=== PATIENT | female | born 1980 | race Caucasian/White ===

== ENCOUNTER 2025-04-15 19:59 | Emergency (ER) | payer MEDICAID, SELFPAY ==
[2025-04-15 20:01] VITALS: BMI 26.4
[2025-04-15 20:41] VITALS: BP 115/75; PULSE 66; RESP 16; TEMP 36.6; O2SAT 99
--- NOTE | 2025-04-15 22:03 | XR_ITS ---
Examination: PA chest single view TECHNIQUE: Upright PA chest single view Date and time: April 15, 2025, 2220 hours INDICATIONS: Chest pain today. FINDINGS: Normal heart size. Lungs are clear. The osseous structures are intact IMPRESSION: No active disease
[2025-04-15 22:47] LABS: Basophils # (Auto) 0.0 Thou/mm3 (0.0-0.2); Basophils % (Auto) 1 % (0-2.5); Eosinophils # (Auto) 0.3 Thou/mm3 (0.0-0.5); Eosinophils % (Auto) 5 % (0-10); Hematocrit 40.0 % (36.0-46.0); Hemoglobin 13.5 g/dL (12.0-16.0); Immature Granulocytes Auto 0.02 Thou/mm3 (0.00-0.00); Lymphocytes # (Auto) 1.7 Thou/mm3 (1.0-4.8); Lymphocytes % (Auto) 30 % (10-50); Mean Corpuscular HGB Conc 33.8 g/dl (31.0-37.0); Mean Corpuscular Hemoglobin 30.0 pg (25.0-35.0); Mean Corpuscular Volume 89 fL (80-100); Monocytes # (Auto) 0.6 Thou/mm3 (0.0-0.8); Monocytes % (Auto) 11 % (0-12); Neutrophils # (Auto) 3.0 Thou/mm3 (1.8-7.7); Neutrophils % (Auto) 53 % (37-80); Nucleated Red Blood Cell # 0.00 Thou/mm3 (0.00-0.00); Nucleated Red Blood Cell % 0 /100 WBC (0); Platelet Count 260 Thou/mm3 (140-440); RDW Standard Deviation 44.7 fL (36.4-46.3); Red Blood Count 4.50 Miln/mm3 (4.00-5.20); White Blood Count 5.6 Thou/mm3 (3.6-11.0)
[2025-04-15 23:05] LABS: B-Type Natriuretic Peptide 28 pg/mL (0-100)
[2025-04-15 23:18] LABS: Alanine Aminotransferase 10 U/L (10-49); Albumin, Serum 4.0 gm/dL (3.5-5.0); Albumin/Globulin Ratio 1.6 (1.2-2.2); Alkaline Phosphatase 62 U/L (46-116); Anion Gap 5 (7-16); Aspartate Amino Transferase 15 U/L (0-34); BUN/Creatinine Ratio 6 Ratio (12-20); Bilirubin,Total 0.4 mg/dL (0.3-1.2); Blood Urea Nitrogen < 5 mg/dL (9-23); Calcium 8.9 mg/dL (8.3-10.6); Calcium (Corrected) 8.9 mg/dL (8.5-10.1); Carbon Dioxide 27.0 mMol/L (20.0-31.0); Chloride 109 mMol/L (98-107); Creatinine (Component) 0.9 mg/dL (0.6-1.3); Estimated Creatinine Clearance 68.8 mL/min (>60); Globulin 2.5 gm/dL (2.3-3.5); Glucose 89 mg/dL (74-106); Osmolality,Calculated 277 (275-295); Potassium 4.0 mMol/L (3.4-5.1); Sodium 141 mMol/L (136-145); Total Protein 6.5 gm/dL (5.7-8.2); Troponin I 0.021 ng/mL (0.0-0.045); eGFR > 60 See Note
--- NOTE | 2025-04-15 23:45 | PD.EDCHEST ---
ED Chest Pain RME/HPI General Chief Complaint: Chest Pain Stated Complaint: CHEST PAIN Time Seen by Provider: 04/15/25 20:05 Source: patient Arrival date/time: 04/15/25 19:59 This is a case of 44-year-old female with history of SLE came in in the emergency room due to chest pain mostly on the midsternal area no other associated symptoms history of present illness started today no shortness of breath no palpitation Limitations: no limitations Related Data Home Medications ?Medication ?Instructions ?Recorded ?Confirmed cyclobenzaprine 5 mg tablet 5 mg PO HS 03/30/19 03/30/19 loratadine 10 mg tablet 10 mg PO QDAY 03/30/19 03/30/19 methimazole 5 mg tablet 5 mg PO BID 03/30/19 03/30/19 propranolol 10 mg tablet 10 mg PO BID 03/30/19 03/30/19 Previous Rx's ?Medication ?Instructions ?Recorded acetaminophen 650 mg 650 mg PO Q8H PRN fever or pain 05/20/19 tablet,extended release #30 tabs ibuprofen 600 mg tablet 600 mg PO Q8H PRN fever or pain 05/20/19 #30 tabs hydrocodone 5 mg-acetaminophen 325 1 tab PO Q4H PRN pain #10 tabs 01/07/ mg tablet ([place]) methylprednisolone 4 mg tablets in 4 mg PO .as directed #21 tabs 07/23/20 a dose pack (Medrol (Anand)) ibuprofen 800 mg tablet 800 mg PO Q8H PRN pain #20 tabs 04/15/25 Allergies Allergy/AdvReac Type Severity Reaction Status Date / Time amoxicillin Allergy Severe RASH, Verified 04/15/25 20:06 ITCHING tomato Allergy Severe THROAT Verified 04/15/25 20:06 CLOSES clindamycin Allergy Intermediate RASH Verified 04/15/25 20:06 morphine AdvReac Intermediate ITCHING Verified 04/15/25 20:06 AND AGGITATED Bee Stings Allergy Severe SWELLING, Uncoded 04/15/25 20:06 THROAT CLOSES Review of Systems Review of Systems Systems Reviewed: All systems reviewed, normal except as documented Constitutional Constitutional: Reports system reviewed and no additional complaints, except as documented and Reports as per HPI Cardiovascular Cardiovascular: Reports system reviewed and no additional complaints, except as documented, Reports as per HPI, Denies acrocyanosis, Reports chest pain, Denies chest pain at rest, Denies chest pain with activity, Denies claudication, Denies diaphoresis, Denies dyspnea, Denies dyspnea on exertion, Denies edema, Denies irregular heart rhythm, Denies leg edema, Denies leg ulcers, Denies lightheadedness, Denies orthopnea, Denies palpitations, Denies paroxysmal nocturnal dyspnea, Denies radiating jaw, neck or arm pain, Denies rapid heart rate, Denies slow heart rate and Denies syncope Respiratory Respiratory: Reports system reviewed and no additional complaints, except as documented, Reports as per HPI, Denies dyspnea and Denies dyspnea on exertion Gastrointestinal Gastrointestinal: Reports system reviewed and no additional complaints, except as documented and Reports as per HPI Musculoskeletal Musculoskeletal: Reports system reviewed and no additional complaints, except as documented Neurologic Neurologic: Reports system reviewed and no additional complaints, except as documented, Reports as per HPI and Denies syncope Endocrine Endocrine: Denies palpitations Past Medical History Past Medical History NEUROLOGIC: Negative Neurological Disorders, Cerebrovascular Accident, Transient Ischemic Attacks (TIA), Dementia, Alzheimer's Disease, Parkinson's Disease, Brain Tumor, Meningitis, Seizures, Epilepsy, Multiple Sclerosis, Cerebral Palsy, Amyotrophic Lateral Sclerosis (ALS/Gillian Gehrig's), Guillain-[place] Syndrome, Spina Bifida, Paralysis, Myers's Palsy, Subdural Hematoma, Migraine, Head Trauma or Traumatic Brain Injury CARDIAC: Positive Cardiac Disorders; Negative Myocardial Infarction, Cardiac Arrhythmia, Atrial Fibrillation, Angina, Heart Murmur, Coronary Artery Disease, Atherosclerotic Heart Disease, Peripheral Vascular Disease, Hypercholesterolemia, Aneurysm, Congestive Heart Failure, Congenital Heart Disease, Valvular Heart Disease, Rheumatic Fever, Cardiomyopathy, Edema, Pericarditis, Cellulitis, Deep Vein Thrombosis, Hypertension, Hypotension or Varicose Veins RESPIRATORY: Positive Asthma; Negative Chronic Obstructive Pulmonary Disease (COPD), Bronchitis, Emphysema, Pneumonia, Pulmonary Fibrosis, Cystic Fibrosis, Tuberculosis, Pulmonary Embolism, Pulmonary Edema or Sleep Apnea GASTROINTESTINAL: Negative Gastrointestinal Disorders GENITOURINARY: Negative Genitourinary Disorders or Renal Disease REPRODUCTIVE: Negative Pelvic Inflammatory Disease MUSCULOSKELETAL: Negative Musculoskeletal Disorders ENT: Negative Head Trauma ENDOCRINE: Positive Endocrine Disorders, Hyperthyroidism and Systemic Lupus Erythematosus; Negative Diabetes Mellitus Type 1 or Diabetes Mellitus Type 2 HEMATOLOGIC: Negative Blood Disorders OTHER HISTORY: Positive Chicken Pox; Negative Autoimmune Disease, Blood Transfusions, Blood Transfusion Reaction, Anesthesia Reactions, Organ Transplant, MRSA or Cancer Family History FAMILY HISTORY: Positive Family Respiratory Disorders, Family Cardiac Disorders, Family Cancer and Family Surgery; Negative Family Psychiatric Problems, Family Gastrointestinal Problems or Family Anesthesia Reaction Surgical History SURGICAL: Positive Tubal Ligation; Negative Pacemaker, Endocrine Surgery, Ear Surgery, Abdominal Surgery, Nephrectomy, Joint Replacement, Neurologic Surgery, Vasectomy or Organ Transplant Social History SMOKING STATUS: Never smoker ED Exam General Limitations: Present no limitations General appearance: Present alert and in no apparent distress Head Head exam: Present atraumatic Eye Eye exam: Present normal appearance, PERRL and EOMI ENT ENT exam: Present normal exam, normal oropharynx and mucous membranes moist Neck Neck exam: Present normal inspection, full ROM and trachea midline; Absent tenderness, meningismus, lymphadenopathy or thyromegaly Chest Chest inspection: Present normal inspection and symmetric chest wall rise; Absent tenderness, rash or abscess Respiratory Respiratory exam: Present normal lung sounds bilaterally; Absent respiratory distress, wheezes, stridor, accessory muscle use or prolonged expiratory phase Cardiovascular Cardiovascular exam: Present regular rate, normal rhythm and normal heart sounds; Absent bradycardia, tachycardia, irregular rhythm, systolic murmur or diastolic murmur Abdominal Exam Abdominal exam: Present soft and normal bowel sounds; Absent distention, tenderness, guarding, rebound, rigidity, diminished bowel sounds, hyperactive bowel sounds or hypoactive bowel sounds Extremities Exam Extremities exam: Present normal inspection and full ROM Back Exam Back exam: Present normal inspection and full ROM Neurological Exam Neurological exam: Present alert, oriented X3, CN II-XII intact, normal gait and reflexes normal; Absent motor sensory deficit Psychiatric Psychiatric exam: Present normal affect and normal mood Skin Skin exam: Present warm, dry, intact and normal color Course Quality Measures none Orders Category Date Time Status EKG (ED ONLY) *Do not use* NOW Care 04/15/25 20:08 Completed EKG (ED Only) Stat Exams 04/15/25 20:08 Ordered XR chest 1V portable Stat Exams 04/15/25 22:03 Completed BNP [B-Type Natriuretic Peptide] Stat Lab 04/15/25 22:34 Completed CBC Stat Lab 04/15/25 22:34 Completed Comprehensive Metabolic Panel Stat Lab 04/15/25 22:34 Completed Troponin I Stat Lab 04/15/25 22:34 Completed Urinalysis Stat Lab 04/15/25 22:03 Ordered Vital Signs Vital signs: Vital Signs Temperature 98 F 04/15/25 20:41 Pulse Rate 66 04/15/25 20:41 Respiratory Rate 16 04/15/25 20:41 Blood Pressure 115/75 04/15/25 20:41 Pulse Oximetry (%) 99 04/15/25 20:41 Oxygen Delivery Method Room Air 04/15/25 20:41 Oxygen saturation 99% in room air Chest Pain MDM Narrative MDM Narrative:: This is a case of 44-year-old female with history of SLE came in in the emergency room due to chest pain mostly on the midsternal area no other associated symptoms history of present illness started today no shortness of breath no palpitation physical examination patient is awake alert oriented not in distress nontoxic looking vital signs stable afebrile nontachycardic nontachypneic not hypoxic patient noted to have mild tenderness on the midsternal area possible due to costochondritis heart sounds normal rate regular rhythm no murmur lung sounds clear no crackles no rales or retraction no stridor no edema the rest of the physical examination neurological exam is normal and unremarkable blood test showed no leukocytosis no anemia kidney liver function is normal no electrolyte imbalance troponin is negative BNP is negative EKG sinus rhythm normal heart rate and chest x-ray normal at this point there is no signs and symptoms of cardiopulmonary pathology no pulmonary embolism no AL patient will follow-up with PCP in 2 days for reevaluation and to be referred to supervisor paint 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 Patient verbalized no further complains explained diagnosis and answered patient question. Patient is comfortable with the proposed management plan including the need to follow up with his/her primary care physician and any specialist if applicable Discussed patient for any urgent condition or worsening sx, He/She needed to go to emergency room immediately or call 911. Patient acknowledge the responsibility to follow up as instructed and to monitor her/his symptoms. For any persistence of the symptoms for more than 3-5 days return precaution advised. Discussed the result of the test and was given printed discharge instruction Patient data External records reviewed:: [facility] previous records Clinical information provided by:: patient Social determinants that could affect healthcare access:: none Patient has the following chronic illnesses:: None How is presenting disease/condition affected by chronic disease/condition?: no chronic disease Evaluation data The following diagnostics were reviewed and interpreted by me:: lab results and radiology exam(s) Lab and/or radiology exams considered but not ordered:: Reviewed Interpretation Summary: Reviewed Medications / Prescriptions Medications or Prescriptions considered but not ordered:: Given Medication administrations:: Given Consultations Consultation(s) initiated? (list below): No Diagnosis Chest Pain Differential Diagnosis: atypical chest pain and costochondritis Most likely diagnosis given after review of the tests above:: Chest pain of unknown etiology Admission Indicated Admission indicated?: not indicated Explain why admission is indicated or not indicated:: Not indicated Admission Request Was there a request for admission?: No Admission Attestation Admission request attestation: Not indicated Disposition Plan Disposition Plan: Discharge Discharge Attestation Discharge Attestation: The patient and all family members were given an opportunity to ask questions and understood the discharge instructions. Discharge instructions specifically effects, indications for sooner follow up or return to the emergency department, and the expected course of current diagnosis. Patient condition: Stable Discharge Plan Plan Patient Disposition: HOME (Self Care) Patient condition on transfer: Stable Prescriptions/Referrals Prescriptions/Med Rec: New ibuprofen 800 mg tablet 800 mg PO Q8H PRN (Reason: pain) Qty: 20 0RF No Action acetaminophen 650 mg tablet extended release 650 mg PO Q8H PRN (Reason: fever or pain) Qty: 30 0RF Rx Instructions: swallow whole; do not crush, chew, break, dissolve, cut, or open ibuprofen 600 mg tablet 600 mg PO Q8H PRN (Reason: fever or pain) Qty: 30 0RF Rx Instructions: prn pain / fever propranolol 10 mg Tablet 10 mg PO BID methimazole 5 mg Tablet 5 mg PO BID loratadine 10 mg Tablet 10 mg PO QDAY cyclobenzaprine 5 mg Tablet 5 mg PO HS hydrocodone-acetaminophen [[place]] 5-325 mg tablet 1 tab PO Q4H MDD 4 PRN (Reason: pain) Qty: 10 0RF methylprednisolone [Medrol (Anand)] 4 mg tablets,dose pack 4 mg PO .as directed Qty: 21 0RF Referrals: Nupur Kang NP [Primary Care Provider] - In 1 week Problem List Clinical Impression: Chest pain of unknown etiology Patient/Caregiver Discharge Instructions Education Materials: ED Chest Pain, Uncertain Cause Additional Instructions: Follow-up with your primary care physician in 2 days for reevaluation and to be referred to supervisor paint 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
== END 2025-04-16 00:13 | disposition home or self-care (01) ==
PROVIDERS: Nurse Practitioner Family; Emergency Provider Emergency Medicine; PCP Nurse Practitioner Family
DX: R07.9 Chest pain, unspecified (principal); M32.9 Systemic lupus erythematosus, unspecified
CPT/HCPCS: 36415; 71045; 80053; 81001; 83880; 84484; 85025; 93005; 99283

== ENCOUNTER 2025-05-19 20:47 | Emergency (ER) | payer MEDICAID, SELFPAY ==
[2025-05-19 20:48] VITALS: BMI 24.5
[2025-05-19 21:05] VITALS: BP 108/67; PULSE 68; RESP 18; TEMP 37.1; O2SAT 96
--- NOTE | 2025-05-19 21:36 | PD.EDSKIN ---
ED Skin Abcess FB-RME/HPI General Chief complaint: Skin/Abscess/Foreign Body Stated complaint: RASH TO WHOLE BODY Time Seen by Provider: 05/19/25 21:14 Arrival date/time: 05/19/25 20:47 RME / HPI RME / HPI narrative: 44-year-old female presents to the ED with a complaint of tiny blisters to her bilateral hands that are extremely itchy. They have been present for the past 3 days. 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 Related Data Home Medications ?Medication ?Instructions ?Recorded ?Confirmed cyclobenzaprine 5 mg tablet 5 mg PO HS 03/30/19 03/30/19 loratadine 10 mg tablet 10 mg PO QDAY 03/30/19 03/30/19 methimazole 5 mg tablet 5 mg PO BID 03/30/19 03/30/19 propranolol 10 mg tablet 10 mg PO BID 03/30/19 03/30/19 Previous Rx's ?Medication ?Instructions ?Recorded acetaminophen 650 mg 650 mg PO Q8H PRN fever or pain 05/20/19 tablet,extended release #30 tabs ibuprofen 600 mg tablet 600 mg PO Q8H PRN fever or pain 05/20/19 #30 tabs hydrocodone 5 mg-acetaminophen 325 1 tab PO Q4H PRN pain #10 tabs 01/07/20 mg tablet ([place]) methylprednisolone 4 mg tablets in 4 mg PO .as directed #21 tabs 07/23/20 a dose pack (Medrol (Anand)) ibuprofen 800 mg tablet 800 mg PO Q8H PRN pain #20 tabs 04/15/25 prednisone 20 mg tablet 50 mg (2.5 x 20 mg) PO QDAY 4 days 05/19/25 #10 tabs sulfamethoxazole 800 1 tab PO BID #14 tabs 05/19/25 mg-trimethoprim 160 mg tablet (Bactrim DS) triamcinolone acetonide 0.1 % 1 applic topical BID PRN 05/19/25 topical cream Itching/rash #30 grams Allergies Allergy/AdvReac Type Severity Reaction Status Date / Time amoxicillin Allergy Severe RASH, Verified 05/19/25 20:47 ITCHING tomato Allergy Severe THROAT Verified 05/19/25 20:47 CLOSES clindamycin Allergy Intermediate RASH Verified 05/19/25 20:47 morphine AdvReac Intermediate ITCHING Verified 05/19/25 20:47 AND AGGITATED Bee Stings Allergy Severe SWELLING, Uncoded 05/19/25 20:47 THROAT CLOSES Review of Systems Review of Systems Systems Reviewed: All systems reviewed, normal except as documented Past Medical History Past Medical History NEUROLOGIC: Negative Neurological Disorders, Cerebrovascular Accident, Transient Ischemic Attacks (TIA), Dementia, Alzheimer's Disease, Parkinson's Disease, Brain Tumor, Meningitis, Seizures, Epilepsy, Multiple Sclerosis, Cerebral Palsy, Amyotrophic Lateral Sclerosis (ALS/Gillian Gehrig's), Guillain-[place] Syndrome, Spina Bifida, Paralysis, Myers's Palsy, Subdural Hematoma, Migraine, Head Trauma or Traumatic Brain Injury CARDIAC: Positive Cardiac Disorders; Negative Myocardial Infarction, Cardiac Arrhythmia, Atrial Fibrillation, Angina, Heart Murmur, Coronary Artery Disease, Atherosclerotic Heart Disease, Peripheral Vascular Disease, Hypercholesterolemia, Aneurysm, Congestive Heart Failure, Congenital Heart Disease, Valvular Heart Disease, Rheumatic Fever, Cardiomyopathy, Edema, Pericarditis, Cellulitis, Deep Vein Thrombosis, Hypertension, Hypotension or Varicose Veins RESPIRATORY: Positive Asthma; Negative Chronic Obstructive Pulmonary Disease (COPD), Bronchitis, Emphysema, Pneumonia, Pulmonary Fibrosis, Cystic Fibrosis, Tuberculosis, Pulmonary Embolism, Pulmonary Edema or Sleep Apnea GASTROINTESTINAL: Negative Gastrointestinal Disorders GENITOURINARY: Negative Genitourinary Disorders or Renal Disease REPRODUCTIVE: Negative Pelvic Inflammatory Disease MUSCULOSKELETAL: Negative Musculoskeletal Disorders ENT: Negative Head Trauma ENDOCRINE: Positive Endocrine Disorders, Hyperthyroidism and Systemic Lupus Erythematosus; Negative Diabetes Mellitus Type 1 or Diabetes Mellitus Type 2 HEMATOLOGIC: Negative Blood Disorders OTHER HISTORY: Positive Chicken Pox; Negative Autoimmune Disease, Blood Transfusions, Blood Transfusion Reaction, Anesthesia Reactions, Organ Transplant, MRSA or Cancer Family History FAMILY HISTORY: Positive Family Respiratory Disorders, Family Cardiac Disorders, Family Cancer and Family Surgery; Negative Family Psychiatric Problems, Family Gastrointestinal Problems or Family Anesthesia Reaction Surgical History SURGICAL: Positive Tubal Ligation; Negative Pacemaker, Endocrine Surgery, Ear Surgery, Abdominal Surgery, Nephrectomy, Joint Replacement, Neurologic Surgery, Vasectomy or Organ Transplant Social History SMOKING STATUS: Current some day smoker ED Exam Narrative Physical exam: A&O, afebrile and non-toxic appearing, pleasant 44-year-old female, no acute distress. Lung sounds are clear, RRR. Skin exam of the hands reveals tiny vesicles, the majority popped to the dorsal aspect of her PIP joints. 1 lesion to her right hand, fifth finger PIP joint appears to be pustular. Moves all extremities well. Course Course Course Narrative: Patient was given Decadron 10 mg p.o. as well as Bactrim DS 1 tablet p.o. Quality Measures none Orders Category Date Time Status Dexamethasone Inj [Decadron Inj] Med 05/19/25 21:35 Once 10 mg PO X1 ONE Trimethoprim/Sulfa 160/800 Ds [Bactrim Ds] Med 05/19/25 21:35 Once 1 tab PO X1 ONE Vital Signs Vital signs: Vital Signs Temperature 98.7 F 05/19/25 21:05 Pulse Rate 68 05/19/25 21:05 Respiratory Rate 18 05/19/25 21:05 Blood Pressure 108/67 05/19/25 21:05 Pulse Oximetry (%) 96 05/19/25 21:05 Oxygen Delivery Method Room Air 05/19/25 21:05 Skin / Abscess / Foreign Body MDM Narrative MDM Narrative:: Symptoms, exam and diagnostic studies are consistent with: Likely dyshidrotic eczema with 1 pustular lesion. Patient was discharged home in stable condition. Patient/family advised to follow-up with their PCP in 24-48 hours. Encouraged to return to the ED for any new or worsening symptoms. Patient data External records reviewed:: None Clinical information provided by:: patient Social determinants that could affect healthcare access:: none Patient has the following chronic illnesses:: N/A How is presenting disease/condition affected by chronic disease/condition?: no chronic disease Evaluation data The following diagnostics were reviewed and interpreted by me:: other (specify) (None) Lab and/or radiology exams considered but not ordered:: N/A Interpretation Summary: N/A Medications / Prescriptions Medications or Prescriptions considered but not ordered:: N/A Medication administrations:: Medication Administration History Dexamethasone Sodium Phosphate (Dexamethasone Sod Phos Inj 10 Mg/Ml Vial) 10 mg PO X1 ONE Stop: 05/19/25 21:36 As noted above, and Bactrim DS 1 tab p.o. Consultations Consultation(s) initiated? (list below): No Diagnosis Skin/Abscess Differential Diagnosis: abscess of skin or subcutaneous tissue, eczema, impetigo and contact dermatitis Most likely diagnosis given after review of the tests above:: Likely dyshidrotic eczema with 1 pustular lesion. Admission Indicated Admission indicated?: not indicated Explain why admission is indicated or not indicated:: Patient is stable for discharge Admission Request Was there a request for admission?: No Admission Attestation Admission request attestation: N/A Disposition Plan Disposition Plan: Discharge Discharge Attestation Discharge Attestation: The patient and all family members were given an opportunity to ask questions and understood the discharge instructions. Discharge instructions specifically effects, indications for sooner follow up or return to the emergency department, and the expected course of current diagnosis. Patient condition: Stable Discharge Plan Plan Patient Disposition: HOME (Self Care) Discharge Disposition comment: Stable Prescriptions/Referrals Prescriptions/Med Rec: New prednisone 20 mg tablet 50 mg PO QDAY 4 Days Qty: 10 0RF sulfamethoxazole-trimethoprim [Bactrim DS] 800-160 mg tablet 1 tab PO BID Qty: 14 0RF triamcinolone acetonide 0.1 % cream 1 applic topical BID PRN (Reason: Itching/rash) Qty: 30 0RF No Action acetaminophen 650 mg tablet extended release 650 mg PO Q8H PRN (Reason: fever or pain) Qty: 30 0RF Rx Instructions: swallow whole; do not crush, chew, break, dissolve, cut, or open ibuprofen 600 mg tablet 600 mg PO Q8H PRN (Reason: fever or pain) Qty: 30 0RF Rx Instructions: prn pain / fever propranolol 10 mg Tablet 10 mg PO BID methimazole 5 mg Tablet 5 mg PO BID loratadine 10 mg Tablet 10 mg PO QDAY cyclobenzaprine 5 mg Tablet 5 mg PO HS hydrocodone-acetaminophen [[place]] 5-325 mg tablet 1 tab PO Q4H MDD 4 PRN (Reason: pain) Qty: 10 0RF methylprednisolone [Medrol (Anand)] 4 mg tablets,dose pack 4 mg PO .as directed Qty: 21 0RF ibuprofen 800 mg tablet 800 mg PO Q8H PRN (Reason: pain) Qty: 20 0RF Problem List Clinical Impression: Dyshidrotic eczema, Skin pustule Patient/Caregiver Discharge Instructions Education Materials: ED Atopic Dermatitis (Adult), ED Abscess Treatment (Child) Additional Instructions: Take the antibiotics and steroids as prescribed and complete the course even though you may be feeling better. Use the steroid cream as needed for itching and any new lesions. Follow-up with your primary care physician in 24 to 48 hours. Return to the ED for any new or worsening symptoms. Print Language: Mohawk Stand Alone Forms: Jalyn Award Info., Patient Portal Info Letter PA/NEUROLOGY TECHNICIAN Supervising Physician PA/CRISTOBAL Supervising Physician: Dr. Hare
[2025-05-19] MEDS: DEXAMETHASONE SOD PHOS INJ 10 MG/ML VIAL PO (21:57)
[2025-05-19] MEDS: TRIMETHOPRIM/SULFA 160/800 DS TABLET 1 TAB PO (21:57)
[2025-05-19 22:13] VITALS: RESP 12
== END 2025-05-19 22:14 | disposition home or self-care (01) ==
PROVIDERS: Emergency Provider Physician Assistant
DX: L30.1 Dyshidrosis [pompholyx] (principal); L08.9 Local infection of the skin and subcutaneous tissue, unspecified; Z88.0 Allergy status to penicillin; Z88.1 Allergy status to other antibiotic agents
CPT/HCPCS: 99283; J1100; A9270

== ENCOUNTER 2025-05-30 23:44 | Emergency (ER) | payer MEDICAID, SELFPAY ==
[2025-05-30 23:45] VITALS: BMI 24.5
[2025-05-31 00:46] VITALS: BP 157/88; PULSE 70; RESP 20; TEMP 36.8; O2SAT 97
--- NOTE | 2025-05-31 00:51 | XR_ITS ---
Examination: Abdomen sonogram, Limited Date and time of exam: May 31, 2025 at 0150 hours INDICATIONS: Right upper abdominal pain beginning 2 hours ago Technique: Real-time gomez scale transabdominal sonographic images of the upper abdomen obtained. Findings: Normal gallbladder. Normal common bile duct 0.25 cm. Pancreas obscured by bowel gas. Liver 13.2 cm no liver lesions. Normal hepatopedal portal venous flow. Patent IVC. IMPRESSION: Normal gallbladder. Normal common bile duct
--- NOTE | 2025-05-31 00:51 | XR_ITS ---
Examination: CT abdomen and pelvis without contrast. Coronal 3-D reconstructions. Sagittal 2-D reconstructions. Date and time of exam:May 31, 2025, 0236 hours. INDICATIONS: Outside right-sided flank pain today. CTDI: vol (mGy): 6.37. DLP: (mGycm): 341. Technique: Axial images of the abdomen have been obtained, 3 mm slice thickness Intravenous contrast material has not been administered. Low dose protocols were performed. One or more of the following dose reduction techniques were used; automated exposure control, adjustment of the mA and/or KV according to patient size, use of iterative reconstruction technique. Findings: No focal liver or splenic lesion No gallstones No pancreatic or adrenal mass Mild right hydronephrosis, 2 mm distal right ureteral calculus. Normal appendix No bowel obstruction Contracted urinary bladder IMPRESSION: Mild right hydronephrosis secondary to 2 mm distal right ureteral calculus
--- NOTE | 2025-05-31 00:52 | PD.EDBACK ---
ED Back Injury Pain RME/HPI General Chief Complaint: Back Pain/Injury Stated Complaint: RIGHT FLANK PAIN RADIATING TO ABD Time Seen by Provider: 05/31/25 00:49 Arrival date/time: 05/30/25 23:44 RME / HPI RME / HPI Narrative: See MDM for Dr. Ontiveros's HPI Documentation. Related Data Home Medications ?Medication ?Instructions ?Recorded ?Confirmed cyclobenzaprine 5 mg tablet 5 mg PO HS 03/30/19 03/30/19 loratadine 10 mg tablet 10 mg PO QDAY 03/30/19 03/30/19 methimazole 5 mg tablet 5 mg PO BID 03/30/19 03/30/19 propranolol 10 mg tablet 10 mg PO BID 03/30/19 03/30/19 Previous Rx's ?Medication ?Instructions ?Recorded acetaminophen 650 mg 650 mg PO Q8H PRN fever or pain 05/20/19 tablet,extended release #30 tabs ibuprofen 600 mg tablet 600 mg PO Q8H PRN fever or pain 05/20/19 #30 tabs hydrocodone 5 mg-acetaminophen 325 1 tab PO Q4H PRN pain #10 tabs 01/07/20 mg tablet (Nichols) methylprednisolone 4 mg tablets in 4 mg PO .as directed #21 tabs 07/23/20 a dose pack (Medrol (Anand)) ibuprofen 800 mg tablet 800 mg PO Q8H PRN pain #20 tabs 04/15/25 sulfamethoxazole 800 1 tab PO BID #14 tabs 05/19/25 mg-trimethoprim 160 mg tablet (Bactrim DS) triamcinolone acetonide 0.1 % 1 applic topical BID PRN 05/19/25 topical cream Itching/rash #30 grams acetaminophen 300 mg-codeine 30 mg 2 tab PO Q8H PRN pain #20 tabs 05/31/25 tablet ketorolac 10 mg tablet 10 mg PO Q8H PRN pain 5 days #10 05/31/25 tabs ondansetron 4 mg disintegrating 4 mg PO TID PRN nausea and 05/31/25 tablet vomiting 30 days #10 tabs tamsulosin 0.4 mg capsule (Flomax) 0.4 mg PO QDAY 7 days #7 caps 05/31/25 Allergies Allergy/AdvReac Type Severity Reaction Status Date / Time amoxicillin Allergy Severe RASH, Verified 05/30/25 23:45 ITCHING tomato Allergy Severe THROAT Verified 05/30/25 23:45 CLOSES clindamycin Allergy Intermediate RASH Verified 05/30/25 23:45 morphine AdvReac Intermediate ITCHING Verified 05/30/25 23:45 AND AGGITATED Bee Stings Allergy Severe SWELLING, Uncoded 05/30/25 23:45 THROAT CLOSES Review of Systems Review of Systems Systems Reviewed: All systems reviewed, normal except as documented Past Medical History Past Medical History CARDIAC: Positive Cardiac Disorders RESPIRATORY: Positive Asthma ENDOCRINE: Positive Endocrine Disorders, Hyperthyroidism and Systemic Lupus Erythematosus OTHER HISTORY: Positive Chicken Pox Family History FAMILY HISTORY: Positive Family Respiratory Disorders, Family Cardiac Disorders, Family Cancer and Family Surgery Surgical History SURGICAL: Positive Tubal Ligation ED Exam Narrative Physical exam: See MDM for Dr. Ontiveros's Physical Exam Documentation. Course Quality Measures none Orders Category Date Time Status Miscellaneous Nursing Order NOW Care 05/31/25 04:01 Completed Saline [Insert IV] NOW Care 05/31/25 00:[address] abdomen pelvis wo con Stat Exams 05/31/25 00:51 Completed US gall bladder Stat Exams 05/31/25 00:51 Completed Alcohol, Blood Medical Stat Lab 05/31/25 01:20 Completed Amylase Stat Lab 05/31/25 01:20 Completed Bilirubin,Direct Stat Lab 05/31/25 01:20 Completed CBC Stat Lab 05/31/25 01:20 Completed CMP [Comprehensive Metabolic Panel] Stat Lab 05/31/25 01:20 Completed HCG,Qualitative Serum Stat Lab 05/31/25 01:20 Completed Lipase Stat Lab 05/31/25 01:20 Completed Magnesium Stat Lab 05/31/25 01:20 Completed UA, C/S IF [Urinalysis, C/S if Indicated] Stat Lab 05/31/25 01:20 Completed Urine Culture Stat Lab 05/31/25 02:00 Completed HYDROmorphone INJ [Dilaudid Inj] Med 05/31/25 00:51 Discontinued 1 mg IVP X1 ONE HYDROmorphone INJ [Dilaudid Inj] Med 05/31/25 04:00 Discontinued 1 mg IVP X1 ONE Ketorolac Inj [Toradol Inj] Med 05/31/25 00:51 Discontinued 30 mg IVP X1 ONE Ondansetron Inj [Zofran Inj] Med 05/31/25 00:51 Discontinued 4 mg IVP X1 ONE Sodium Chloride 0.9% 1000 ml [Ns] 1,000 ml Med 05/31/25 00:51 Discontinued IV 999 mls/hr cefTRIAXone/D5w 1gm IV premix [Rocephin/D5w 1gm IV Med 05/31/25 02:16 Discontinued premix] 1 gm in 50 ml IV X1 Vital Signs Vital signs: Vital Signs Temperature 98.2 F 05/31/25 00:46 Pulse Rate 70 05/31/25 00:46 Respiratory Rate 20 05/31/25 00:46 Blood Pressure 157/88 H 05/31/25 00:46 Pulse Oximetry (%) 97 05/31/25 00:46 Oxygen Delivery Method Room Air 05/31/25 00:46 Back Pain / Injury MDM Narrative MDM Narrative:: Scribe Attestation: I, Micki Caal, am scribing for and in the presence of Dr. Ontiveros. This section includes all my notes and documentations, including HPI, PE, and ED course. Dante Ontiveros MD HPI: 44 y/o female with Hx of Systemic Lupus Erythematosus presents with severe right-sided flank pain x 30 minutes. No other complaints. ROS: All negative except as documented in HPI. Physical Exam: General: Alert and oriented. In severe pain. Eyes: Conjunctivae and lids clear. ENT: No nasal congestion. Neck: Supple. Heart: RRR. Lungs: No respiratory distress. Good air movement. No rhonchi, wheezing, rales. Abdomen: Soft and nontender. Normal bowel sounds. No distension. No rebound or guarding. Back: No CVA tenderness. Skin: Warm and dry. Neuro: Alert and oriented X 3. I reviewed all diagnostic test results: My review of the Gall Bladder US report is: NAD. My review of the Abdomen/Pelvis CT report is: 2 mm obstructing calculus in the right terminal ureter. Blood tests and urine tests remarkable for possible UTI. At this point, diagnoses include: Right Kidney Stone. Treatment here included: Dilaudid 1 mg, IVF, Rocephin 1 G, Toradol 30 mg, Zofran 4 mg She felt much better. Recommended outpatient care. Based on my best medical judgment, made decision no further evaluation or treatment indicated at this time. Patient understands and agrees to the discharge instructions customized and printed, see below. Discharge Instructions from Dr. Ontiveros: --Your symptoms are due to a 2 mm right kidney stone.? It is outside the kidney.? It is trying to pass into your bladder.? --Increase oral fluid to flush your kidneys.? Maintain clear urine. if it's dark or yellow then increase oral fluid.? If you don't do this, you won't pass it.? --Take Flomax to help decrease spasms to increase the chance of passing it.? --Take Zofran as needed for nausea or vomiting. --Take Ketorolac/Toradol for pain control.? And Tylenol with Codeine.? If you are in severe pain, you won't pass it.?? --Strain your urine so you can catch the stone when you pass it.? --See a private doctor on 06/03/25 for recheck. Take the stone with you for analysis because certain stones can be prevented.? If you didn't pass it, ask for referral to see urologist.? Who will take the stone out for you. --Seek immediate medical care with fever over 100.4, persistent vomiting despite Zofran, intolerable pain, or with any concerns.?? Dante Ontiveros MD Patient data External records reviewed:: [facility] previous records (Reviewed prior ED records from 05/19/25. Patient was seen for Dyshidrotic eczema.) Clinical information provided by:: patient Social determinants that could affect healthcare access:: none Patient has the following chronic illnesses:: Asthma, Hyperthyroidism and Systemic Lupus Erythematosus How is presenting disease/condition affected by chronic disease/condition?: exacerbated by Evaluation data The following diagnostics were reviewed and interpreted by me:: lab results and radiology exam(s) Lab and/or radiology exams considered but not ordered:: None Interpretation Summary: I reviewed all diagnostic test results: My review of the Gall Bladder US report is: NAD. My review of the Abdomen/Pelvis CT report is: 2 mm obstructing calculus in the right terminal ureter. Blood tests and urine tests remarkable for possible UTI. Medications / Prescriptions Medications or Prescriptions considered but not ordered:: None Medication administrations:: Medication Administration History Discontinued Medications Hydromorphone HCl (Hydromorphone Inj 2 Mg/Ml Vial) 1 mg IVP X1 ONE Stop: 05/31/25 00:52 Last Admin: 05/31/25 01:23 Dose: 1 mg Documented By: NAVNEET Hydromorphone HCl (Hydromorphone Inj 2 Mg/Ml Vial) 1 mg IVP X1 ONE Stop: 05/31/25 04:01 Last Admin: 05/31/25 04:09 Dose: 1 mg Documented By: PEDRO LUIS Sodium Chloride (Ns) 1,000 mls @ 999 mls/hr IV .Q1H1M ONE Stop: 05/31/25 01:51 Last Infusion: 05/31/25 04:16 Dose: Infused Documented By: PEDRO LUIS Admin: 05/31/25 01:20 Dose: 999 mls/hr Documented By: NAVNEET Ceftriaxone Sodium/Dextrose (Rocephin/D5w 1gm Iv Premix) 1 gm in 50 mls @ 100 mls/hr IV X1 ONE Stop: 05/31/25 02:45 Last Infusion: 05/31/25 04:16 Dose: Infused Documented By: PEDRO LUIS Admin: 05/31/25 03:01 Dose: 100 mls/hr Documented By: NAVNEET Ketorolac Tromethamine (Ketorolac Inj 30 Mg/Ml Vial) 30 mg IVP X1 ONE Stop: 05/31/25 00:52 Last Admin: 05/31/25 01:20 Dose: 30 mg Documented By: NAVNEET Ondansetron HCl (Ondansetron Inj 2 Mg/Ml Inj 2 Ml) 4 mg IVP X1 ONE; Protocol Stop: 05/31/25 00:52 Last Admin: 05/31/25 01:21 Dose: 4 mg Documented By: NAVNEET Dilaudid 1 mg, IVF, Rocephin 1 G, Toradol 30 mg, Zofran 4 mg Consultations Consultation(s) initiated? (list below): No Diagnosis Differential diagnosis back pain/injury: lumbar radiculopathy, sciatica, strain of lumbar region, renal colic, pyelonephritis, AAA, discitis and other (Renal Calculi) Most likely diagnosis given after review of the tests above:: Right Kidney Stone Admission Indicated Admission indicated?: not indicated Explain why admission is indicated or not indicated:: With significant improvement and no condition needing emergent intervention, there was no indication for admission. Admission Request Was there a request for admission?: No Disposition Plan Disposition Plan: Discharge Discharge Attestation Discharge Attestation: The patient and all family members were given an opportunity to ask questions and understood the discharge instructions. Discharge instructions specifically effects, indications for sooner follow up or return to the emergency department, and the expected course of current diagnosis. Patient condition: Stable Discharge Plan Plan Patient Disposition: HOME (Self Care) Prescriptions/Referrals Prescriptions/Med Rec: New acetaminophen-codeine 300-30 mg tablet 2 tab PO Q8H MDD 6 PRN (Reason: pain) Qty: 20 0RF ketorolac 10 mg tablet 10 mg PO Q8H PRN (Reason: pain) 5 Days Qty: 10 0RF tamsulosin [Flomax] 0.4 mg capsule 0.4 mg PO QDAY 7 Days Qty: 7 0RF ondansetron 4 mg tablet,disintegrating 4 mg PO TID PRN (Reason: nausea and vomiting) 30 Days Qty: 10 0RF No Action acetaminophen 650 mg tablet extended release 650 mg PO Q8H PRN (Reason: fever or pain) Qty: 30 0RF Rx Instructions: swallow whole; do not crush, chew, break, dissolve, cut, or open ibuprofen 600 mg tablet 600 mg PO Q8H PRN (Reason: fever or pain) Qty: 30 0RF Rx Instructions: prn pain / fever propranolol 10 mg Tablet 10 mg PO BID methimazole 5 mg Tablet 5 mg PO BID loratadine 10 mg Tablet 10 mg PO QDAY cyclobenzaprine 5 mg Tablet 5 mg PO HS hydrocodone-acetaminophen [Nichols] 5-325 mg tablet 1 tab PO Q4H MDD 4 PRN (Reason: pain) Qty: 10 0RF methylprednisolone [Medrol (Anand)] 4 mg tablets,dose pack 4 mg PO .as directed Qty: 21 0RF ibuprofen 800 mg tablet 800 mg PO Q8H PRN (Reason: pain) Qty: 20 0RF sulfamethoxazole-trimethoprim [Bactrim DS] 800-160 mg tablet 1 tab PO BID Qty: 14 0RF triamcinolone acetonide 0.1 % cream 1 applic topical BID PRN (Reason: Itching/rash) Qty: 30 0RF Referrals: Fartun Mcdonough [Primary Care Provider] - In 1 week Problem List Clinical Impression: Right kidney stone Patient/Caregiver Discharge Instructions Discharge Activity: activity as tolerated Education Materials: ED Kidney Stone w/ Colic Additional Instructions: Discharge Instructions from Dr. Ontiveros: --Your symptoms are due to a 2 mm right kidney stone.? It is outside the kidney.? It is trying to pass into your bladder.? --Increase oral fluid to flush your kidneys.? Maintain clear urine. if it's dark or yellow then increase oral fluid.? If you don't do this, you won't pass it.? --Take Flomax to help decrease spasms to increase the chance of passing it.? --Take Zofran as needed for nausea or vomiting. --Take Ketorolac/Toradol for pain control.? And Tylenol with Codeine.? If you are in severe pain, you won't pass it.?? --Strain your urine so you can catch the stone when you pass it.? --See a private doctor on 06/03/25 for recheck. Take the stone with you for analysis because certain stones can be prevented.? If you didn't pass it, ask for referral to see urologist.? Who will take the stone out for you. --Seek immediate medical care with fever over 100.4, persistent vomiting despite Zofran, intolerable pain, or with any concerns.?? Print Language: Hungarian Stand Alone Forms: [facility] Award Info., Patient Portal Info Letter
[2025-05-31] MEDS: SODIUM CHLORIDE 0.9% 1000 ML 1,000 ML 999 ML IV (01:20)
[2025-05-31] MEDS: KETOROLAC INJ 30 MG/ML VIAL IVP (01:20)
[2025-05-31] MEDS: ONDANSETRON INJ 2 MG/ML INJ 2 ML 4 MG IVP (01:21)
[2025-05-31] MEDS: HYDROmorphone INJ 2 MG/ML VIAL 1 MG IVP ×2 (01:23→04:09)
--- NOTE | 2025-05-31 01:37 | PC.NURSE ---
PT ARRIVED TO ED WITH MOM FOR RIGHT FLANK PAIN THAT STARTED AROUND 0000 05/31/2025. PT STATES THAT SHE HAS A HISTORY OF KIDNEY STONES IN THE PAST WELL OF HYPERTHYROIDISM AND LUPUS.
[2025-05-31 01:42] LABS: Collection Type, Urine Clean Catch
[2025-05-31 01:44] LABS: Basophils # (Auto) 0.1 Thou/mm3 (0.0-0.2); Basophils % (Auto) 1 % (0-2.5); Eosinophils # (Auto) 0.2 Thou/mm3 (0.0-0.5); Eosinophils % (Auto) 2 % (0-10); Hematocrit 43.3 % (36.0-46.0); Hemoglobin 14.7 g/dL (12.0-16.0); Immature Granulocytes Auto 0.03 Thou/mm3 (0.00-0.00); Lymphocytes # (Auto) 2.3 Thou/mm3 (1.0-4.8); Lymphocytes % (Auto) 20 % (10-50); Mean Corpuscular HGB Conc 33.9 g/dl (31.0-37.0); Mean Corpuscular Hemoglobin 30.2 pg (25.0-35.0); Mean Corpuscular Volume 89 fL (80-100); Monocytes # (Auto) 0.8 Thou/mm3 (0.0-0.8); Monocytes % (Auto) 7 % (0-12); Neutrophils # (Auto) 7.9 Thou/mm3 (1.8-7.7); Neutrophils % (Auto) 70 % (37-80); Nucleated Red Blood Cell # 0.00 Thou/mm3 (0.00-0.00); Nucleated Red Blood Cell % 0 /100 WBC (0); Platelet Count 340 Thou/mm3 (140-440); RDW Standard Deviation 44.1 fL (36.4-46.3); Red Blood Count 4.87 Miln/mm3 (4.00-5.20); White Blood Count 11.3 Thou/mm3 (3.6-11.0)
[2025-05-31 01:54] LABS: Amorphous Crystals,Urine Present (Absent); Bacteria,Urine 1+; Bilirubin,Urine Negative (Negative); Blood,Urine 3+ (Negative); Budding Yeast,Urine Present; Color,Urine Yellow (Lt Yel-Yel); Culture Indicated,Urine Contaminated; Glucose, Urine Negative (Negative); Ketones,Urine 1+ (Negative); Leukocyte Esterase,Urine Negative (Negative); Nitrite,Urine Negative (Negative); PH,Urine 7.5 (5.0-7.0); Protein,Urine Trace (Neg - Trace); RBC,Urine 145 /hpf (0-3); Specific Gravity,Urine 1.019 (1.001-1.035); Squamous Epithelial Cell,Urine 16 /hpf (0-5); Urobilinogen,Urine 2.0 mg/dL (0.0-1.0); WBC,Urine 49 /hpf (0-5)
[2025-05-31 01:55] LABS: Clarity,Urine Turbid (Clear/Hazy)
[2025-05-31 02:01] LABS: HCG,Qualitative Serum Negative
[2025-05-31 02:03] LABS: Alanine Aminotransferase 11 U/L (10-49); Albumin, Serum 4.7 gm/dL (3.5-5.0); Albumin/Globulin Ratio 2.1 (1.2-2.2); Alcohol, Blood Medical < 3.0 mg/dL (0-10.0); Alkaline Phosphatase 63 U/L (46-116); Amylase 50 U/L (30-118); Anion Gap 9 (7-16); Aspartate Amino Transferase 17 U/L (0-34); BUN/Creatinine Ratio 5 Ratio (12-20); Bilirubin,Direct 0.1 mg/dL (0.0-0.3); Bilirubin,Total 0.4 mg/dL (0.3-1.2); Blood Urea Nitrogen 6 mg/dL (9-23); Calcium 10.3 mg/dL (8.3-10.6); Calcium (Corrected) 10.3 mg/dL (8.5-10.1); Carbon Dioxide 24.2 mMol/L (20.0-31.0); Chloride 108 mMol/L (98-107); Creatinine (Component) 1.1 mg/dL (0.6-1.3); Estimated Creatinine Clearance 54.4 mL/min (>60); Globulin 2.2 gm/dL (2.3-3.5); Glucose 124 mg/dL (74-106); Lipase 27 U/L (12-53); Magnesium 2.0 mg/dL (1.6-2.6); Osmolality,Calculated 279 (275-295); Potassium 3.6 mMol/L (3.4-5.1); Sodium 141 mMol/L (136-145); Total Protein 6.9 gm/dL (5.7-8.2); eGFR > 60 See Note
--- NOTE | 2025-05-31 02:52 | PRELIM_ITS ---
Gallbladder ultrasound. May 31, 2025 at 0150 hours Clinical history: Right upper quadrant tenderness, pain x2 hours.. Comparison: No prior study is available for comparison. Findings: The visualized liver is normal in echogenicity without mass or ductal dilatation. The main portal vein is patent and demonstrates hepatopetal flow. No gallbladder calculus, wall thickening or pericholecystic fluid is identified. The common duct is normal in caliber at 3mm. No free fluid is demonstrated on the submitted images. The pancreas is obscured by bowel gas. The inferior vena cava is unremarkable to the extent visualized. No evidence of ascites. Impression: No sonographic evidence of cholelithiasis, acute cholecystitis or biliary obstruction. Report Electronically Signed By: Steph Rouse 05/31/2025 2:51:59 AM [EST]
[2025-05-31] MEDS: cefTRIAXone/D5w 1gm IV premix 1 GM/50 ML BAG IV (03:01)
--- NOTE | 2025-05-31 03:27 | PRELIM_ITS ---
CT scan of the abdomen and pelvis without intravenous contrast (axial sections with sagittal and coronal reformats) May 31, 2025 0236 hours Clinical History: Right flank pain Comparison: No prior study is available for comparison. Findings: The lung bases are clear. There is a 2 mm obstructing calculus in the right terminal ureter (coronal images 75/128) causing mild hydroureteronephrosis and periureteric/perinephric fat stranding. The liver, gallbladder, pancreas, spleen and adrenals are unremarkable on this noncontrast study. No evidence of bowel obstruction. A moderate amount of fecal material is present in the colon. The appendix is within normal limits (coronal images 59/128). There is no mesenteric or retroperitoneal adenopathy. The urinary bladder is unremarkable. There is no free fluid or free air. The osseous structures are unremarkable. Impression: 2 mm obstructing calculus in the right terminal ureter causing mild hydroureteronephrosis. Other findings as described above. Report Electronically Signed By: Dexter Rascon 05/31/2025 3:26:41 AM [EST]
[2025-05-31 04:17] VITALS: BP 112/69; PULSE 65; RESP 16; TEMP 36.7; O2SAT 97
== END 2025-05-31 04:18 | disposition home or self-care (01) ==
PROVIDERS: Emergency Provider Emergency Medicine; PCP Physician Assistant
DX: N20.0 Calculus of kidney (principal); M32.9 Systemic lupus erythematosus, unspecified; E05.90 Thyrotoxicosis, unspecified without thyrotoxic crisis or storm; J45.909 Unspecified asthma, uncomplicated; Z79.899 Other long term (current) drug therapy; Z88.0 Allergy status to penicillin; Z88.1 Allergy status to other antibiotic agents
CPT/HCPCS: 36415; 74176; 76705; 80053; 80320; 81001; 82150; 82248; 83690; 83735; 84703; 85025; 87086; 99283; J0696; J1171; J1885; J2405; J7030; G0480

== ENCOUNTER 2025-06-14 15:11 | Emergency (ER) | payer MEDICAID, SELFPAY ==
[2025-06-14 15:40] VITALS: BP 138/84; PULSE 76; RESP 18; TEMP 36.9; O2SAT 98
--- NOTE | 2025-06-14 15:55 | PD.EDEAR ---
ED Ear RME/HPI General Chief complaint: Ear Stated complaint: FEELS SOMETHING IN LEFT EAR Time Seen by Provider: 06/14/25 15:25 Source: patient Arrival date/time: 06/14/25 15:11 44-year-old female with no known medical history presents to the emergency room with a chief complaint of feeling like there is something in her left ear x 2 days Mode of arrival: ambulatory Limitations: no limitations Related Data Home Medications ?Medication ?Instructions ?Recorded ?Confirmed cyclobenzaprine 5 mg tablet 5 mg PO HS 03/30/19 03/30/19 loratadine 10 mg tablet 10 mg PO QDAY 03/30/19 03/30/19 methimazole 5 mg tablet 5 mg PO BID 03/30/19 03/30/19 propranolol 10 mg tablet 10 mg PO BID 03/30/19 03/30/19 Previous Rx's ?Medication ?Instructions ?Recorded acetaminophen 650 mg 650 mg PO Q8H PRN fever or pain 05/20/19 tablet,extended release #30 tabs ibuprofen 600 mg tablet 600 mg PO Q8H PRN fever or pain 05/20/19 #30 tabs hydrocodone 5 mg-acetaminophen 325 1 tab PO Q4H PRN pain #10 tabs 01/07/20 mg tablet (Stella) methylprednisolone 4 mg tablets in 4 mg PO .as directed #21 tabs 07/23/20 a dose pack (Medrol (Anand)) ibuprofen 800 mg tablet 800 mg PO Q8H PRN pain #20 tabs 04/15/25 sulfamethoxazole 800 1 tab PO BID #14 tabs 05/19/25 mg-trimethoprim 160 mg tablet (Bactrim DS) triamcinolone acetonide 0.1 % 1 applic topical BID PRN 05/19/25 topical cream Itching/rash #30 grams acetaminophen 300 mg-codeine 30 mg 2 tab PO Q8H PRN pain #20 tabs 05/31/25 tablet ondansetron 4 mg disintegrating 4 mg PO TID PRN nausea and 05/31/25 tablet vomiting 30 days #10 tabs azithromycin 250 mg tablet See Rx Instructions PO .COMPLEX #6 06/14/25 (Zithromax Z-Anand) tabs ofloxacin 0.3 % ear drops 5 drp otic (ear) QDAY 7 days #5 mL 06/14/25 Allergies Allergy/AdvReac Type Severity Reaction Status Date / Time amoxicillin Allergy Severe RASH, Verified 06/14/25 15:13 ITCHING tomato Allergy Severe THROAT Verified 06/14/25 15:13 CLOSES clindamycin Allergy Intermediate RASH Verified 06/14/25 15:13 morphine AdvReac Intermediate ITCHING Verified 06/14/25 15:13 AND AGGITATED Bee Stings Allergy Severe SWELLING, Uncoded 06/14/25 15:13 THROAT CLOSES Review of Systems Review of Systems Systems Reviewed: All systems reviewed, normal except as documented Constitutional Constitutional: Reports system reviewed and no additional complaints, except as documented, Denies fatigue, Denies fever(s), Denies headache(s) and Denies weakness Eyes Eyes: Reports system reviewed and no additional complaints, except as documented, Denies blurry vision and Denies change in vision ENT Ears, Nose, Mouth, and Throat: Reports system reviewed and no additional complaints, except as documented, Reports ear discharge, Reports otalgia, Denies headache(s), Denies nasal congestion, Denies throat swelling and Denies vertigo Cardiovascular Cardiovascular: Reports system reviewed and no additional complaints, except as documented, Denies chest pain, Denies dyspnea and Denies dyspnea on exertion Respiratory Respiratory: Reports system reviewed and no additional complaints, except as documented, Denies chest congestion, Denies cough, Denies dyspnea, Denies dyspnea on exertion and Denies wheezing Gastrointestinal Gastrointestinal: Reports system reviewed and no additional complaints, except as documented, Denies abdominal pain, Denies cramping, Denies nausea and Denies vomiting Genitourinary Genitourinary: Reports system reviewed and no additional complaints, except as documented Musculoskeletal Musculoskeletal: Reports system reviewed and no additional complaints, except as documented and Denies back pain Integumentary/Breasts Skin/Breast: Reports system reviewed and no additional complaints, except as documented and Denies wounds Neurologic Neurologic: Reports system reviewed and no additional complaints, except as documented, Denies confusion, Denies headache(s), Denies lack of coordination, Denies vertigo and Denies weakness Psychiatric Psychiatric: Reports system reviewed and no additional complaints, except as documented, Denies anxiety, Denies confusion, Denies depression, Denies paranoia, Denies suicidal ideation and Denies tactile hallucinations Endocrine Endocrine: Reports system reviewed and no additional complaints, except as documented and Denies fatigue Hematologic/Lymphatic Hematologic/Lymphatic: Reports system reviewed and no additional complaints, except as documented and Denies lymphadenopathy Allergic/Immunologic Allergic/Immunologic: Reports system reviewed and no additional complaints, except as documented, Denies throat swelling, Denies urticaria and Denies wheezing Past Medical History Past Medical History NEUROLOGIC: Negative Neurological Disorders, Cerebrovascular Accident, Transient Ischemic Attacks (TIA), Dementia, Alzheimer's Disease, Parkinson's Disease, Brain Tumor, Meningitis, Seizures, Epilepsy, Multiple Sclerosis, Cerebral Palsy, Amyotrophic Lateral Sclerosis (ALS/Gillian Gehrig's), Guillain-Harmans Syndrome, Spina Bifida, Paralysis, Myers's Palsy, Subdural Hematoma, Migraine, Head Trauma or Traumatic Brain Injury CARDIAC: Positive Cardiac Disorders; Negative Myocardial Infarction, Cardiac Arrhythmia, Atrial Fibrillation, Angina, Heart Murmur, Coronary Artery Disease, Atherosclerotic Heart Disease, Peripheral Vascular Disease, Hypercholesterolemia, Aneurysm, Congestive Heart Failure, Congenital Heart Disease, Valvular Heart Disease, Rheumatic Fever, Cardiomyopathy, Edema, Pericarditis, Cellulitis, Deep Vein Thrombosis, Hypertension, Hypotension or Varicose Veins RESPIRATORY: Positive Asthma; Negative Chronic Obstructive Pulmonary Disease (COPD), Bronchitis, Emphysema, Pneumonia, Pulmonary Fibrosis, Cystic Fibrosis, Tuberculosis, Pulmonary Embolism, Pulmonary Edema or Sleep Apnea GASTROINTESTINAL: Negative Gastrointestinal Disorders GENITOURINARY: Negative Genitourinary Disorders or Renal Disease REPRODUCTIVE: Negative Pelvic Inflammatory Disease MUSCULOSKELETAL: Negative Musculoskeletal Disorders ENT: Negative Head Trauma ENDOCRINE: Positive Endocrine Disorders, Hyperthyroidism and Systemic Lupus Erythematosus; Negative Diabetes Mellitus Type 1 or Diabetes Mellitus Type 2 HEMATOLOGIC: Negative Blood Disorders OTHER HISTORY: Positive Chicken Pox; Negative Autoimmune Disease, Blood Transfusions, Blood Transfusion Reaction, Anesthesia Reactions, Organ Transplant, MRSA or Cancer Family History FAMILY HISTORY: Positive Family Respiratory Disorders, Family Cardiac Disorders, Family Cancer and Family Surgery; Negative Family Psychiatric Problems, Family Gastrointestinal Problems or Family Anesthesia Reaction Surgical History SURGICAL: Positive Tubal Ligation; Negative Pacemaker, Endocrine Surgery, Ear Surgery, Abdominal Surgery, Nephrectomy, Joint Replacement, Neurologic Surgery, Vasectomy or Organ Transplant Social History SMOKING STATUS: Never smoker ED Exam General Limitations: Present no limitations General appearance: Present alert and in no apparent distress Head Head exam: Present atraumatic Eye Eye exam: Present normal appearance, PERRL and EOMI ENT ENT exam: Present normal exam, normal oropharynx, mucous membranes moist and TM's normal bilaterally Expanded ENT Exam External ear exam: Present external tenderness TM/Canal exam: Left TM: erythema, effusion and canal tenderness Throat exam: Present normal inspection Neck Neck exam: Present normal inspection, full ROM and trachea midline Chest Chest inspection: Present normal inspection and symmetric chest wall rise Respiratory Respiratory exam: Present normal lung sounds bilaterally Cardiovascular Cardiovascular exam: Present regular rate, normal rhythm and normal heart sounds Abdominal Exam Abdominal exam: Present soft and normal bowel sounds Extremities Exam Extremities exam: Present normal inspection and full ROM Back Exam Back exam: Present normal inspection and full ROM Neurological Exam Neurological exam: Present alert, oriented X3 and CN II-XII intact Psychiatric Psychiatric exam: Present normal affect and normal mood Skin Skin exam: Present warm, dry, intact and normal color Course Quality Measures none Orders Category Date Time Status ED Ear Irrigation X1 Care 06/14/25 15:41 Active Vital Signs Vital signs: Vital Signs Temperature 98.4 F 06/14/25 15:40 Pulse Rate 76 06/14/25 15:40 Respiratory Rate 18 06/14/25 15:40 Blood Pressure 138/84 H 06/14/25 15:40 Pulse Oximetry (%) 98 06/14/25 15:40 Oxygen Delivery Method Room Air 06/14/25 15:40 Ear MDM Narrative MDM Narrative:: 44-year-old female with no known medical history presents to the emergency room with a chief complaint of feeling like there is something in her left ear x 2 days Patient is hemodynamically stable and in no apparent distress ENT examination does not show any foreign body in the left ear canal. There is some scabbing to the external ear canal from the patient picking at it. There is also a little bit of scabbing in the eardrum. An irrigation was completed there is still no foreign body Patient was discharged and educated to follow-up with primary care provider in the next 24 to 48 hours and return to the emergency room for any evidence of worsening signs or symptoms Patient data External records reviewed:: [facility] previous records Clinical information provided by:: patient Social determinants that could affect healthcare access:: none Patient has the following chronic illnesses:: No chronic illness How is presenting disease/condition affected by chronic disease/condition?: no chronic disease Evaluation data The following diagnostics were reviewed and interpreted by me:: lab results and radiology exam(s) Lab and/or radiology exams considered but not ordered:: Labs and radiology exams considered and ordered Interpretation Summary: N/A Medications / Prescriptions Medications or Prescriptions considered but not ordered:: Rx given Medication administrations:: Rx given Consultations Consultation(s) initiated? (list below): No Diagnosis Ear Differential Diagnosis: otitis externa, otitis media, foreign body in ear and ruptured TM Most likely diagnosis given after review of the tests above:: Otitis media Admission Indicated Admission indicated?: not indicated Admission Request Was there a request for admission?: No Disposition Plan Disposition Plan: Discharge Discharge Attestation Discharge Attestation: The patient and all family members were given an opportunity to ask questions and understood the discharge instructions. Discharge instructions specifically effects, indications for sooner follow up or return to the emergency department, and the expected course of current diagnosis. Patient condition: Stable Discharge Plan Plan Patient Disposition: HOME (Self Care) Discharge Disposition comment: Stable Prescriptions/Referrals Prescriptions/Med Rec: New azithromycin [Zithromax Z-Anand] 250 mg tablet See Rx Instructions .ROUTE .COMPLEX Qty: 6 0RF Rx Instructions: For 250 mg dose pack: take 500 mg today (day 1), then 250 mg for 4 days (days 2-5) ofloxacin 0.3 % drops 5 drp otic (ear) QDAY 7 Days Qty: 5 0RF No Action acetaminophen 650 mg tablet extended release 650 mg PO Q8H PRN (Reason: fever or pain) Qty: 30 0RF Rx Instructions: swallow whole; do not crush, chew, break, dissolve, cut, or open ibuprofen 600 mg tablet 600 mg PO Q8H PRN (Reason: fever or pain) Qty: 30 0RF Rx Instructions: prn pain / fever propranolol 10 mg Tablet 10 mg PO BID methimazole 5 mg Tablet 5 mg PO BID loratadine 10 mg Tablet 10 mg PO QDAY cyclobenzaprine 5 mg Tablet 5 mg PO HS hydrocodone-acetaminophen [Stella] 5-325 mg tablet 1 tab PO Q4H MDD 4 PRN (Reason: pain) Qty: 10 0RF methylprednisolone [Medrol (Anand)] 4 mg tablets,dose pack 4 mg PO .as directed Qty: 21 0RF ibuprofen 800 mg tablet 800 mg PO Q8H PRN (Reason: pain) Qty: 20 0RF sulfamethoxazole-trimethoprim [Bactrim DS] 800-160 mg tablet 1 tab PO BID Qty: 14 0RF triamcinolone acetonide 0.1 % cream 1 applic topical BID PRN (Reason: Itching/rash) Qty: 30 0RF acetaminophen-codeine 300-30 mg tablet 2 tab PO Q8H MDD 6 PRN (Reason: pain) Qty: 20 0RF ondansetron 4 mg tablet,disintegrating 4 mg PO TID PRN (Reason: nausea and vomiting) 30 Days Qty: 10 0RF Problem List Clinical Impression: Otitis media Patient/Caregiver Discharge Instructions Education Materials: ED Otitis Media Antibiotic ... Additional Instructions: Please follow-up with your primary care provider in the next 24 to 48 hours Antibiotics were sent to your pharmacy please pick them up and take them as indicated For any evidence of worsening signs or symptoms return to emergency room immediately Print Language: Mexican Stand Alone Forms: Jalyn Award Info., Patient Portal Info Letter PA/BAR STAFF Supervising Physician PA/BAR STAFF Supervising Physician: Dr. Figueroa
== END 2025-06-14 16:56 | disposition home or self-care (01) ==
PROVIDERS: Emergency Provider Family Medicine
DX: H66.92 Otitis media, unspecified, left ear (principal); Z88.1 Allergy status to other antibiotic agents; Z88.0 Allergy status to penicillin; Z88.5 Allergy status to narcotic agent; Z91.018 Allergy to other foods; Z91.030 Bee allergy status
CPT/HCPCS: 99283

== ENCOUNTER 2025-07-10 14:57 | Emergency (ER) | payer MEDICAID, SELFPAY ==
[2025-07-10 15:28] VITALS: BP 134/90; PULSE 63; RESP 16; TEMP 36.8; O2SAT 97; BMI 22.0
--- NOTE | 2025-07-10 15:36 | XR_ITS ---
Examination: Humerus 2 views left Technique: Humerus, AP lateral 2 views Date and time of exam: July 10, 2025, 1537 hours INDICATIONS: Patient fell today with injury to left arm, left arm pain. FINDINGS: No shoulder fracture or dislocation Shaft of the humerus intact IMPRESSION: No acute fracture
--- NOTE | 2025-07-10 15:36 | XR_ITS ---
Examination: Left elbow 3 views Technique: Elbow AP, oblique, lateral 3 views Exam date and time: July 10, 2025, 1537 hours INDICATIONS: History of the elbow today, elbow pain. FINDINGS: No fracture or dislocation. No foreign body IMPRESSION: No fracture or dislocation.
--- NOTE | 2025-07-10 16:23 | PD.EDUPEX ---
Upper Extremity Injury RME/HPI General Chief Complaint: Extremity Injury, Upper Stated Complaint: LEFT ARM INJURY Time Seen by Provider: 07/10/25 15:05 Arrival date/time: 07/10/25 14:57 44-year-old female presents to the emergency department today stating she tripped over her dog last night and when she fell she hit her left upper arm patient reports pain to the arm patient reports no other injuries. Limitations: no limitations Related Data Home Medications ?Medication ?Instructions ?Recorded ?Confirmed cyclobenzaprine 5 mg tablet 5 mg PO HS 03/30/19 03/30/19 loratadine 10 mg tablet 10 mg PO QDAY 03/30/19 03/30/19 methimazole 5 mg tablet 5 mg PO BID 03/30/19 03/30/19 propranolol 10 mg tablet 10 mg PO BID 03/30/19 03/30/19 Previous Rx's ?Medication ?Instructions ?Recorded acetaminophen 650 mg 650 mg PO Q8H PRN fever or pain 05/20/19 tablet,extended release #30 tabs ibuprofen 600 mg tablet 600 mg PO Q8H PRN fever or pain 05/20/19 #30 tabs hydrocodone 5 mg-acetaminophen 325 1 tab PO Q4H PRN pain #10 tabs 01/07/20 mg tablet ([place]) methylprednisolone 4 mg tablets in 4 mg PO .as directed #21 tabs 07/23/20 a dose pack (Medrol (Anand)) ibuprofen 800 mg tablet 800 mg PO Q8H PRN pain #20 tabs 04/15/25 sulfamethoxazole 800 1 tab PO BID #14 tabs 05/19/25 mg-trimethoprim 160 mg tablet (Bactrim DS) triamcinolone acetonide 0.1 % 1 applic topical BID PRN 05/19/25 topical cream Itching/rash #30 grams acetaminophen 300 mg-codeine 30 mg 2 tab PO Q8H PRN pain #20 tabs 05/31/25 tablet azithromycin 250 mg tablet See Rx Instructions PO .COMPLEX #6 06/14/25 (Zithromax Z-Anand) tabs cyclobenzaprine 5 mg tablet 5 mg PO TID PRN muscle spasm #30 07/10/25 tabs ibuprofen 600 mg tablet 600 mg PO Q6H #30 tabs 07/10/25 Allergies Allergy/AdvReac Type Severity Reaction Status Date / Time amoxicillin Allergy Severe RASH, Verified 06/14/25 15:13 ITCHING tomato Allergy Severe THROAT Verified 06/14/25 15:13 CLOSES clindamycin Allergy Intermediate RASH Verified 06/14/25 15:13 morphine AdvReac Intermediate ITCHING Verified 06/14/25 15:13 AND AGGITATED Bee Stings Allergy Severe SWELLING, Uncoded 06/14/25 15:13 THROAT CLOSES Review of Systems Review of Systems Systems Reviewed: All systems reviewed, normal except as documented Constitutional Constitutional: Reports system reviewed and no additional complaints, except as documented, Denies fever(s) and Denies headache(s) Eyes Eyes: Reports system reviewed and no additional complaints, except as documented and Denies blurry vision ENT Ears, Nose, Mouth, and Throat: Reports system reviewed and no additional complaints, except as documented, Denies headache(s), Denies nasal congestion and Denies nasal discharge Cardiovascular Cardiovascular: Reports system reviewed and no additional complaints, except as documented, Denies chest pain and Denies dyspnea Respiratory Respiratory: Reports system reviewed and no additional complaints, except as documented, Denies chest congestion, Denies cough and Denies dyspnea Gastrointestinal Gastrointestinal: Reports system reviewed and no additional complaints, except as documented and Denies abdominal pain Musculoskeletal Musculoskeletal: Reports system reviewed and no additional complaints, except as documented, Reports arthralgias, Denies deformity, Denies numbness, Reports stiffness and Denies tingling Integumentary/Breasts Skin/Breast: Reports system reviewed and no additional complaints, except as documented and Denies rash Neurologic Neurologic: Reports system reviewed and no additional complaints, except as documented, Reports as per HPI, Denies headache(s), Denies numbness and Denies tingling Past Medical History Past Medical History NEUROLOGIC: Negative Neurological Disorders, Cerebrovascular Accident, Transient Ischemic Attacks (TIA), Dementia, Alzheimer's Disease, Parkinson's Disease, Brain Tumor, Meningitis, Seizures, Epilepsy, Multiple Sclerosis, Cerebral Palsy, Amyotrophic Lateral Sclerosis (ALS/Gillian Gehrig's), Guillain-[place] Syndrome, Spina Bifida, Paralysis, Myers's Palsy, Subdural Hematoma, Migraine, Head Trauma or Traumatic Brain Injury CARDIAC: Positive Cardiac Disorders; Negative Myocardial Infarction, Cardiac Arrhythmia, Atrial Fibrillation, Angina, Heart Murmur, Coronary Artery Disease, Atherosclerotic Heart Disease, Peripheral Vascular Disease, Hypercholesterolemia, Aneurysm, Congestive Heart Failure, Congenital Heart Disease, Valvular Heart Disease, Rheumatic Fever, Cardiomyopathy, Edema, Pericarditis, Cellulitis, Deep Vein Thrombosis, Hypertension, Hypotension or Varicose Veins RESPIRATORY: Positive Asthma; Negative Chronic Obstructive Pulmonary Disease (COPD), Bronchitis, Emphysema, Pneumonia, Pulmonary Fibrosis, Cystic Fibrosis, Tuberculosis, Pulmonary Embolism, Pulmonary Edema or Sleep Apnea GASTROINTESTINAL: Negative Gastrointestinal Disorders GENITOURINARY: Negative Genitourinary Disorders or Renal Disease REPRODUCTIVE: Negative Pelvic Inflammatory Disease MUSCULOSKELETAL: Negative Musculoskeletal Disorders ENT: Negative Head Trauma ENDOCRINE: Positive Endocrine Disorders, Hyperthyroidism and Systemic Lupus Erythematosus; Negative Diabetes Mellitus Type 1 or Diabetes Mellitus Type 2 HEMATOLOGIC: Negative Blood Disorders OTHER HISTORY: Positive Chicken Pox; Negative Autoimmune Disease, Blood Transfusions, Blood Transfusion Reaction, Anesthesia Reactions, Organ Transplant, MRSA or Cancer Family History FAMILY HISTORY: Positive Family Respiratory Disorders, Family Cardiac Disorders, Family Cancer and Family Surgery; Negative Family Psychiatric Problems, Family Gastrointestinal Problems or Family Anesthesia Reaction Surgical History SURGICAL: Positive Tubal Ligation; Negative Pacemaker, Endocrine Surgery, Ear Surgery, Abdominal Surgery, Nephrectomy, Joint Replacement, Neurologic Surgery, Vasectomy or Organ Transplant Social History SMOKING STATUS: Never smoker ED Exam General Limitations: Present no limitations General appearance: Present alert and in no apparent distress Head Head exam: Present atraumatic Eye Eye exam: Present normal appearance, PERRL and EOMI ENT ENT exam: Present normal exam, normal oropharynx and mucous membranes moist Neck Neck exam: Present normal inspection, full ROM and trachea midline Chest Chest inspection: Present normal inspection and symmetric chest wall rise Respiratory Respiratory exam: Present normal lung sounds bilaterally Cardiovascular Cardiovascular exam: Present regular rate, normal rhythm and normal heart sounds Abdominal Exam Abdominal exam: Present soft and normal bowel sounds Extremities Exam Extremities exam: Present full ROM, tenderness (Left upper arm pain) and normal capillary refill; Absent joint swelling Back Exam Back exam: Present normal inspection and full ROM Neurological Exam Neurological exam: Present alert, oriented X3 and CN II-XII intact Psychiatric Psychiatric exam: Present normal affect and normal mood Skin Skin exam: Present warm, dry, intact and normal color Course Quality Measures none Orders Category Date Time Status XR elbow comp LT min 3V Stat Exams 07/10/25 15:36 Completed XR humerus LT MIN 2V Stat Exams 07/10/25 15:36 Completed Vital Signs Vital signs: Vital Signs Temperature 98.2 F 07/10/25 15:28 Pulse Rate 63 07/10/25 15:28 Respiratory Rate 16 07/10/25 15:28 Blood Pressure 134/90 H 07/10/25 15:28 Pulse Oximetry (%) 97 07/10/25 15:28 Oxygen Delivery Method Room Air 07/10/25 15:28 O2 saturation 97% room air within normal limits Extremity Injury MDM Narrative MDM Narrative:: 44-year-old female presents to the emergency department today stating she tripped over her dog last night and when she fell she hit her left upper arm patient reports pain to the arm patient reports no other injuries. On exam patient well-appearing patient does not appear look toxic no distress patient is no bruising or swelling Imaging of the left elbow humerus obtained no acute fracture dislocation noted Patient discharged home in no distress to follow-up with primary care doctor in the next 24 to 48 hours and for any worsening symptoms to return to the ER immediately Patient data External records reviewed:: [facility] previous records Clinical information provided by:: patient Social determinants that could affect healthcare access:: none Patient has the following chronic illnesses:: See history How is presenting disease/condition affected by chronic disease/condition?: uneffected by Evaluation data The following diagnostics were reviewed and interpreted by me:: radiology exam(s) Lab and/or radiology exams considered but not ordered:: Radiology obtained Interpretation Summary: Reviewed by me Medications / Prescriptions Medications or Prescriptions considered but not ordered:: Rx given Medication administrations:: Rx given Consultations Consultation(s) initiated? (list below): No Diagnosis Upper Extremity Injury Differential Diagnosis: other (Elbow sprain, humerus pain) Most likely diagnosis given after review of the tests above:: Contusion left arm Admission Indicated Admission indicated?: not indicated Admission Request Was there a request for admission?: No Disposition Plan Disposition Plan: Discharge Discharge Attestation Discharge Attestation: The patient and all family members were given an opportunity to ask questions and understood the discharge instructions. Discharge instructions specifically effects, indications for sooner follow up or return to the emergency department, and the expected course of current diagnosis. Patient condition: Stable Discharge Plan Plan Patient Disposition: HOME (Self Care) Discharge Disposition comment: Stable Prescriptions/Referrals Prescriptions/Med Rec: New ibuprofen 600 mg tablet 600 mg PO Q6H Qty: 30 0RF cyclobenzaprine 5 mg tablet 5 mg PO TID PRN (Reason: muscle spasm) Qty: 30 0RF No Action acetaminophen 650 mg tablet extended release 650 mg PO Q8H PRN (Reason: fever or pain) Qty: 30 0RF Rx Instructions: swallow whole; do not crush, chew, break, dissolve, cut, or open ibuprofen 600 mg tablet 600 mg PO Q8H PRN (Reason: fever or pain) Qty: 30 0RF Rx Instructions: prn pain / fever propranolol 10 mg Tablet 10 mg PO BID methimazole 5 mg Tablet 5 mg PO BID loratadine 10 mg Tablet 10 mg PO QDAY cyclobenzaprine 5 mg Tablet 5 mg PO HS hydrocodone-acetaminophen [[place]] 5-325 mg tablet 1 tab PO Q4H MDD 4 PRN (Reason: pain) Qty: 10 0RF methylprednisolone [Medrol (Anand)] 4 mg tablets,dose pack 4 mg PO .as directed Qty: 21 0RF ibuprofen 800 mg tablet 800 mg PO Q8H PRN (Reason: pain) Qty: 20 0RF sulfamethoxazole-trimethoprim [Bactrim DS] 800-160 mg tablet 1 tab PO BID Qty: 14 0RF triamcinolone acetonide 0.1 % cream 1 applic topical BID PRN (Reason: Itching/rash) Qty: 30 0RF acetaminophen-codeine 300-30 mg tablet 2 tab PO Q8H MDD 6 PRN (Reason: pain) Qty: 20 0RF azithromycin [Zithromax Z-Anand] 250 mg tablet See Rx Instructions .ROUTE .COMPLEX Qty: 6 0RF Rx Instructions: For 250 mg dose pack: take 500 mg today (day 1), then 250 mg for 4 days (days 2-5) Referrals: No Primary/Family,Physician [Primary Care Provider] - In 1 week Problem List Clinical Impression: Contusion of elbow, left Patient/Caregiver Discharge Instructions Education Materials: Bruises (Contusions) Additional Instructions: Please follow up with your primary care doctor in the next 24-48hrs for any worsening symptoms return here immediately Print Language: [place] Stand Alone Forms: Jalyn Award Info., Patient Portal Info Letter PA/BREAKFAST AND ROOM ATTENDANT Supervising Physician PA/BREAKFAST AND ROOM ATTENDANT Supervising Physician: Dr. hsieh
--- NOTE | 2025-07-10 16:43 | PC.NURSE ---
PT WAS GIVEN SMALL LING PER STATOR [facility]ER [facility]U
== END 2025-07-10 16:43 | disposition home or self-care (01) ==
PROVIDERS: Emergency Provider Family Medicine
DX: S50.02XA Contusion of left elbow, initial encounter (principal); W01.0XXA Fall on same level from slipping, tripping and stumbling without subsequent striking against object, initial encounter
CPT/HCPCS: 73060; 73080; 99283